=== PATIENT | female | born 1955 | race Caucasian/White ===

== ENCOUNTER 2020-10-28 08:47 | Day surgery (SDC) | payer OTHER, SELFPAY ==
[~2020-10-28] VITALS: Ht 160 cm; Wt 90.7 kg
[2020-10-28] MEDS ORDERED: DIPHENHYDRAMINE INJ 50 MG/ML VIAL ONE (09:49)
[2020-10-28] MEDS ORDERED: MIDAZOLAM HCL 5 MG/5 ML VIAL ONE (09:49)
[2020-10-28] MEDS ORDERED: MORPHINE 2 MG/ML INJ. SYRINGE ONE (11:33)
[2020-10-28 15:33] VITALS: BP_SYST 120
== END 2020-10-28 12:45 | disposition home or self-care (01) ==
LOC: SDS 08:47 → SMU 08:49 → SDS 12:45
PROVIDERS: ATTEND Internal Medicine
DX: M50.13 Cervical disc disorder with radiculopathy, cervicothoracic region (principal); E11.9 Type 2 diabetes mellitus without complications; I10 Essential (primary) hypertension; Z79.84 Long term (current) use of oral hypoglycemic drugs; Z79.82 Long term (current) use of aspirin; Z79.899 Other long term (current) drug therapy; Z20.822 Contact with and (suspected) exposure to COVID-19
CPT/HCPCS: 62321; 82962; J2250; J2270; U0003; 76000; J1200

== ENCOUNTER 2023-12-20 07:40 | Day surgery (SDC) | payer OTHER, MEDICAID ==
[~2023-12-20] VITALS: Ht 157.5 cm; Wt 86.2 kg
[2023-12-20] MEDS ORDERED: MIDAZOLAM HCL 5 MG/5 ML VIAL ONE (08:21)
[2023-12-20] MEDS ORDERED: fentaNYL CITRATE/PF 100 MCG/2 ML AMP ONE (08:21)
[2023-12-20] MEDS: fentaNYL CITRATE/PF 100 MCG/2 ML AMP IVP ONE (09:45)
[2023-12-20] MEDS: MIDAZOLAM HCL 5 MG/5 ML VIAL IVP ONE ×2 (09:45→09:47)
[2023-12-20] MEDS ORDERED: NORMAL SALINE 10 ML VIAL ONE ×2 (10:00→12:00)
[2023-12-20] MEDS ORDERED: LIDOCAINE 2%, 20 ML MDV ONE ×2 (10:00→12:00)
[2023-12-20] MEDS ORDERED: BUPIVACAINE /PF 0.25% 30 ML VIAL INJ ONE ×2 (10:00→12:00)
[2023-12-20] MEDS ORDERED: methylPREDNISolone ACETATE 40 MG/ML ONE ×2 (10:00→12:00)
[2023-12-20] MEDS ORDERED: IOHEXOL 300 mgI/mL, 50 mL INFUS..BTL IV ONE ×2 (10:00→12:00)
[2023-12-20 12:42] VITALS: BP_SYST 104; PULSE 79; RESP 20; TEMP 98; O2SAT 98
== END 2023-12-20 10:50 | disposition home or self-care (01) ==
LOC: SDS 07:40 → SMU 07:42 → SDS 10:50
PROVIDERS: ATTEND Internal Medicine
DX: M50.13 Cervical disc disorder with radiculopathy, cervicothoracic region (principal); M47.22 Other spondylosis with radiculopathy, cervical region; I10 Essential (primary) hypertension; E11.9 Type 2 diabetes mellitus without complications; M79.10 Myalgia, unspecified site; G89.4 Chronic pain syndrome; Z79.82 Long term (current) use of aspirin; Z79.84 Long term (current) use of oral hypoglycemic drugs; Z79.899 Other long term (current) drug therapy
CPT/HCPCS: 62321; 82948; J3490; J2250; J3010; Q9967; J1010; 76000; J1030; J2001